=== PATIENT | male | born 1940 | race Two or more races ===

== ENCOUNTER → 2017-10-12 | Outpatient (CLI) | payer OTHER ==
[~2017-10-12] MED LIST: ASA81 MG; METFORMIN
== END | disposition home or self-care (01) ==
LOC: LAB 08:52
DX: E11.65 Type 2 diabetes mellitus with hyperglycemia (principal); N39.0 Urinary tract infection, site not specified; E78.2 Mixed hyperlipidemia

== ENCOUNTER → 2018-01-05 08:55 | Outpatient (CLI) | payer OTHER | END | disposition home or self-care (01) | LOC: LAB 08:55 | DX: Z12.11 Encounter for screening for malignant neoplasm of colon (principal); E11.65 Type 2 diabetes mellitus with hyperglycemia; D64.89 Other specified anemias; D68.8 Other specified coagulation defects; E78.2 Mixed hyperlipidemia; N40.0 Benign prostatic hyperplasia without lower urinary tract symptoms ==

== ENCOUNTER → 2018-04-05 | Outpatient (CLI) | payer OTHER | END | disposition home or self-care (01) | LOC: LAB 07:31 | DX: E11.65 Type 2 diabetes mellitus with hyperglycemia (principal); E11.21 Type 2 diabetes mellitus with diabetic nephropathy; N39.0 Urinary tract infection, site not specified; E78.2 Mixed hyperlipidemia; E03.8 Other specified hypothyroidism ==

== ENCOUNTER 2018-08-01 08:57 | Outpatient (CLI) | payer OTHER | END 2018-08-01 09:20 | disposition home or self-care (01) | LOC: LAB 08:57 | DX: J45.998 Other asthma (principal); D64.89 Other specified anemias; D68.8 Other specified coagulation defects; E11.65 Type 2 diabetes mellitus with hyperglycemia; E78.2 Mixed hyperlipidemia; E11.21 Type 2 diabetes mellitus with diabetic nephropathy; E03.8 Other specified hypothyroidism ==

== ENCOUNTER 2018-10-31 08:44 | Outpatient (CLI) | payer OTHER | END 2018-10-31 09:02 | disposition home or self-care (01) | LOC: LAB 08:44 | DX: N39.0 Urinary tract infection, site not specified (principal); E11.21 Type 2 diabetes mellitus with diabetic nephropathy; E78.2 Mixed hyperlipidemia; D64.89 Other specified anemias ==

== ENCOUNTER 2019-01-26 06:43 | Emergency (ER) | payer OTHER ==
[~2019-01-26] VITALS: Ht 165.1 cm; Wt 86.2 kg
[2019-01-26] MEDS ORDERED: ISOSORBIDE MONO60 MG (07:12)
[2019-01-26] MEDS ORDERED: ENALAPRIL MALE2.5 MG (07:12)
[2019-01-26] MEDS ORDERED: ZOCOR20 MG (07:12)
[2019-01-26] MEDS ORDERED: TOPROL XL50 MG PO (07:12)
[2019-01-26] MEDS ORDERED: GLIMEPIRIDE4 MG (07:13)
[2019-01-26] MEDS ORDERED: TESSALON PERLE100 M1 PO (08:57)
[2019-01-26] MEDS ORDERED: PROMETH-CODEIN 65 ML PO (08:57)
[2019-01-26] MEDS ORDERED: ZITHROMAX500 MG PO (08:57)
== END 2019-01-26 10:45 | disposition home or self-care (01) ==
LOC: ER 06:43
DX: R05 Cough (principal)

== ENCOUNTER 2019-02-13 08:46 | Outpatient (CLI) | payer OTHER ==
[~2019-02-13 08:46] MED LIST changes: +ENALAPRIL MALE2.5 MG; +GLIMEPIRIDE4 MG; +ISOSORBIDE MONO60 MG; +PROMETH-CODEIN 65 ML PO; +TESSALON PERLE100 M1 PO; +TOPROL XL50 MG PO; +ZITHROMAX500 MG PO; +ZOCOR20 MG
== END 2019-02-13 08:53 | disposition home or self-care (01) ==
LOC: LAB 08:46
DX: E03.8 Other specified hypothyroidism (principal); Z12.11 Encounter for screening for malignant neoplasm of colon; N40.1 Benign prostatic hyperplasia with lower urinary tract symptoms; E11.65 Type 2 diabetes mellitus with hyperglycemia

== ENCOUNTER → 2019-05-09 09:19 | Outpatient (CLI) | payer OTHER | END | disposition home or self-care (01) | LOC: LAB 09:19 | DX: E11.65 Type 2 diabetes mellitus with hyperglycemia (principal); E78.2 Mixed hyperlipidemia; E11.21 Type 2 diabetes mellitus with diabetic nephropathy; D64.89 Other specified anemias ==

== ENCOUNTER → 2019-08-06 08:40 | Outpatient (CLI) | payer OTHER | END | disposition home or self-care (01) | LOC: LAB 08:40 | DX: N40.0 Benign prostatic hyperplasia without lower urinary tract symptoms (principal); D64.89 Other specified anemias; E11.65 Type 2 diabetes mellitus with hyperglycemia ==

== ENCOUNTER → 2019-11-09 08:48 | Outpatient (CLI) | payer OTHER | END | disposition home or self-care (01) | LOC: LAB 08:48 | DX: E11.65 Type 2 diabetes mellitus with hyperglycemia (principal); N39.0 Urinary tract infection, site not specified; D64.89 Other specified anemias; E78.2 Mixed hyperlipidemia; E11.21 Type 2 diabetes mellitus with diabetic nephropathy ==

== ENCOUNTER 2020-04-14 07:19 | Outpatient (CLI) | payer OTHER | END 2020-04-14 15:00 | disposition home or self-care (01) | LOC: LAB 07:19 | PROVIDERS: ATTEND Internal Medicine Cardiovascular Disease | DX: I11.9 Hypertensive heart disease without heart failure (principal); E78.1 Pure hyperglyceridemia; E11.9 Type 2 diabetes mellitus without complications ==

== ENCOUNTER 2020-04-29 07:23 | Outpatient (CLI) | payer OTHER | END 2020-04-29 07:29 | disposition home or self-care (01) | LOC: NUCLEAR 07:23 | PROVIDERS: ATTEND Internal Medicine Cardiovascular Disease | DX: R07.89 Other chest pain (principal); I10 Essential (primary) hypertension | CPT/HCPCS: 78452; 93017; A9500; J0153 ==

== ENCOUNTER 2020-07-01 07:49 | Outpatient (CLI) | payer OTHER | END 2020-07-01 07:59 | disposition home or self-care (01) | LOC: LAB 07:49 | PROVIDERS: ATTEND Internal Medicine Cardiovascular Disease | DX: M16.0 Bilateral primary osteoarthritis of hip (principal); E11.65 Type 2 diabetes mellitus with hyperglycemia; E11.21 Type 2 diabetes mellitus with diabetic nephropathy; D64.89 Other specified anemias; D68.8 Other specified coagulation defects; D51.0 Vitamin B12 deficiency anemia due to intrinsic factor deficiency; I11.9 Hypertensive heart disease without heart failure; E78.00 Pure hypercholesterolemia, unspecified ==

== ENCOUNTER 2020-11-03 10:06 | Outpatient (CLI) | payer OTHER | END 2020-11-03 10:13 | disposition home or self-care (01) | LOC: LAB 10:06 | PROVIDERS: ATTEND Specialist | DX: E03.8 Other specified hypothyroidism (principal); E11.65 Type 2 diabetes mellitus with hyperglycemia; E11.21 Type 2 diabetes mellitus with diabetic nephropathy; N40.1 Benign prostatic hyperplasia with lower urinary tract symptoms; N39.0 Urinary tract infection, site not specified; E78.2 Mixed hyperlipidemia; D64.89 Other specified anemias; D68.8 Other specified coagulation defects ==

== ENCOUNTER → 2021-01-15 08:30 | Outpatient (CLI) | payer OTHER | END | disposition home or self-care (01) | LOC: LAB 08:30 | PROVIDERS: ATTEND Specialist | DX: D64.89 Other specified anemias (principal); E11.65 Type 2 diabetes mellitus with hyperglycemia; E11.21 Type 2 diabetes mellitus with diabetic nephropathy; N40.1 Benign prostatic hyperplasia with lower urinary tract symptoms; D51.0 Vitamin B12 deficiency anemia due to intrinsic factor deficiency; Z12.11 Encounter for screening for malignant neoplasm of colon; I11.9 Hypertensive heart disease without heart failure; E78.1 Pure hyperglyceridemia; J45.998 Other asthma ==

== ENCOUNTER 2021-06-30 09:48 | Outpatient (CLI) | payer OTHER | END 2021-06-30 15:00 | disposition home or self-care (01) | LOC: LAB 09:48 | PROVIDERS: ATTEND Internal Medicine Cardiovascular Disease | DX: E03.8 Other specified hypothyroidism (principal); I11.9 Hypertensive heart disease without heart failure; E11.9 Type 2 diabetes mellitus without complications; E78.00 Pure hypercholesterolemia, unspecified ==

== ENCOUNTER 2021-08-03 08:22 | Outpatient (CLI) | payer OTHER | END 2021-08-03 08:31 | disposition home or self-care (01) | LOC: TOM 08:22 | PROVIDERS: ATTEND Specialist | DX: G93.89 Other specified disorders of brain (principal); I63.89 Other cerebral infarction ==

== ENCOUNTER 2021-08-21 08:45 | Outpatient (CLI) | payer OTHER | END 2021-08-21 08:46 | disposition home or self-care (01) | LOC: NUCLEAR 08:45 | PROVIDERS: ATTEND Internal Medicine Cardiovascular Disease | DX: I73.9 Peripheral vascular disease, unspecified (principal) ==

== ENCOUNTER 2021-11-09 10:12 | Outpatient (CLI) | payer OTHER | END 2021-11-09 10:13 | disposition home or self-care (01) | LOC: LAB 10:12 | PROVIDERS: ATTEND Specialist | DX: E03.9 Hypothyroidism, unspecified (principal); E11.21 Type 2 diabetes mellitus with diabetic nephropathy; N39.9 Disorder of urinary system, unspecified; N40.1 Benign prostatic hyperplasia with lower urinary tract symptoms; N40.0 Benign prostatic hyperplasia without lower urinary tract symptoms; E78.2 Mixed hyperlipidemia; E11.65 Type 2 diabetes mellitus with hyperglycemia; Z12.11 Encounter for screening for malignant neoplasm of colon; D64.9 Anemia, unspecified; J45.998 Other asthma; N25.81 Secondary hyperparathyroidism of renal origin ==

== ENCOUNTER 2022-03-03 08:36 | Outpatient (CLI) | payer OTHER | END 2022-03-03 08:37 | disposition home or self-care (01) | LOC: LAB 08:36 | PROVIDERS: ATTEND Specialist | DX: R19.5 Other fecal abnormalities (principal); D64.89 Other specified anemias; N25.81 Secondary hyperparathyroidism of renal origin; E03.8 Other specified hypothyroidism; E11.69 Type 2 diabetes mellitus with other specified complication; E11.21 Type 2 diabetes mellitus with diabetic nephropathy; N39.9 Disorder of urinary system, unspecified; Z13.220 Encounter for screening for lipoid disorders; Z12.5 Encounter for screening for malignant neoplasm of prostate; R07.89 Other chest pain ==

== ENCOUNTER 2022-06-07 09:09 | Outpatient (CLI) | payer OTHER | END 2022-06-07 09:15 | disposition home or self-care (01) | LOC: LAB 09:09 | PROVIDERS: ATTEND Specialist | DX: D64.9 Anemia, unspecified (principal); D51.0 Vitamin B12 deficiency anemia due to intrinsic factor deficiency ==

== ENCOUNTER 2022-09-04 10:06 | Emergency (ER) | payer OTHER ==
[~2022-09-04] VITALS: Ht 167.6 cm; Wt 77.1 kg
[2022-09-04] MEDS ORDERED: METFORMIN HCL500 M3 PO (10:21)
[2022-09-04] MEDS ORDERED: CAPTOPRIL25 MG PO (10:21)
[2022-09-04] MEDS ORDERED: SIMVASTATIN5 MG (10:22)
[2022-09-04] MEDS ORDERED: TOPROL XL50 M1 PO (10:22)
== END 2022-09-04 13:18 | disposition home or self-care (01) ==
LOC: ER 10:06
DX: R53.1 Weakness (principal); E11.9 Type 2 diabetes mellitus without complications; Z79.84 Long term (current) use of oral hypoglycemic drugs

== ENCOUNTER → 2022-09-13 09:18 | Outpatient (CLI) | payer OTHER ==
[~2022-09-13 09:18] MED LIST changes: +CAPTOPRIL25 MG PO; +METFORMIN HCL500 M3 PO; +SIMVASTATIN5 MG; +TOPROL XL50 M1 PO
== END | disposition home or self-care (01) ==
LOC: LAB 09:18
PROVIDERS: ATTEND Specialist
DX: D64.89 Other specified anemias (principal); E03.8 Other specified hypothyroidism; Z12.5 Encounter for screening for malignant neoplasm of prostate; N39.9 Disorder of urinary system, unspecified; E11.69 Type 2 diabetes mellitus with other specified complication; R19.5 Other fecal abnormalities; M00.80 Arthritis due to other bacteria, unspecified joint; E11.21 Type 2 diabetes mellitus with diabetic nephropathy; Z13.220 Encounter for screening for lipoid disorders; N25.81 Secondary hyperparathyroidism of renal origin

== ENCOUNTER → 2022-12-02 10:02 | Outpatient (CLI) | payer OTHER | END | disposition home or self-care (01) | LOC: LAB 10:02 | PROVIDERS: ATTEND Specialist | DX: E03.8 Other specified hypothyroidism (principal); D64.89 Other specified anemias; E11.69 Type 2 diabetes mellitus with other specified complication; N39.9 Disorder of urinary system, unspecified; E11.21 Type 2 diabetes mellitus with diabetic nephropathy; Z13.220 Encounter for screening for lipoid disorders; J45.998 Other asthma ==

== ENCOUNTER 2023-03-02 09:35 | Outpatient (CLI) | payer OTHER | END 2023-03-02 15:08 | disposition home or self-care (01) | LOC: LAB 09:35 | PROVIDERS: ATTEND Specialist | DX: E11.21 Type 2 diabetes mellitus with diabetic nephropathy (principal); N39.9 Disorder of urinary system, unspecified; D64.89 Other specified anemias; Z12.5 Encounter for screening for malignant neoplasm of prostate; E03.8 Other specified hypothyroidism; N25.81 Secondary hyperparathyroidism of renal origin ==

== ENCOUNTER 2023-07-01 07:12 | Outpatient (CLI) | payer OTHER | END 2023-07-01 07:14 | disposition home or self-care (01) | LOC: NUCLEAR 07:12 | PROVIDERS: ATTEND Internal Medicine Cardiovascular Disease | DX: I25.10 Atherosclerotic heart disease of native coronary artery without angina pectoris (principal) | CPT/HCPCS: 78452; 93017; A9500; J0153 ==

== ENCOUNTER → 2023-10-05 09:47 | Outpatient (CLI) | payer OTHER ==
[2023-10-05 10:32] LABS: HEMATOCRIT 38.8 % (39.0-48.0); HEMOGLOBIN 12.9 g/dL (13-16.00); MEAN CORPUSCULAR HEMOGLOBIN 29.2 pg (27.00-32.0); MEAN CORPUSCULAR HGB CONC 33.1 g/dl (32.0-36.0); PLATELET COUNT 175 K/uL (150-450); RED BLOOD COUNT 4.41 M/uL (4.00-6.00); RED CELL DISTRIBUTION WIDTH 13.9 % (11.5-14.5)
[2023-10-05 10:36] LABS: URINE APPEARANCE Clear; URINE BILIRRUBIN Negative (NEGATIVE); URINE BLOOD Negative; URINE COLOR Yellow; URINE GLUCOSE Negative (NEGATIVE); URINE LEUKOCYTE Negative; URINE NITRATE Negative; URINE PROTEIN Negative (NEGATIVE); URINE UROBILINOGEN 0.2 E.U./dl
[2023-10-05 10:41] LABS: URINE BACTERIA 27.7 uL (0.0-1933); URINE EPITHELIAL CELLS 2.1 uL (0.0-38.8); URINE RBC 4.8 uL (0.0-20.8)
[2023-10-05 10:44] LABS: URINE WBC 1.5 uL (0.0-23.2)
[2023-10-05 11:49] LABS: ALBUMIN 3.8 gm/dL (3.4-5.0); ALKALINE PHOSPHATASE 49 U/L (50-136); ALT/SGPT 13 U/L (12-78); ANION GAP 6 (10.0-20.0); AST/SGOT 16 U/L (15-37); BILIRUBIN TOTAL 0.55 mg/dL (0.3-1.2); BLOOD UREA NITROGEN 16 mg/dL (7-18); BUN CREA RATIO 15 (7.0-25.0); CALCIUM 9.3 mg/dL (8.5-10.1); CARBON DIOXIDE 32 mEq/L (21-32); CHLORIDE 107 mmol/L (98-107); CHOL HDL RATIO 2.1 (0-5.0); CHOLESTEROL 109 mg/dL (0-200); CREATININE SERUM 1.07 mg/dL (0.70-1.30); GLOBULINA 3.5 G/DL (2.4-3.5); GLUCOSE FASTING 140 mg/dL (65-100); HDL 53 mg/dl (40-60); LDL 45 mg/dl (0-130); OSMOLALITY SERUM 285 MOSM/KG (275-295); POTASSIUM 4.48 mEq/L (3.5-5.1); SODIUM 141 mmol/L (136-145); TOTAL PROTEIN 7.3 gm/dL (6.4-8.2); TRIGLYCERIDES 56 mg/dL (0-150); VLDL 11 (0-39)
[2023-10-05 11:50] LABS: C-REACTIVE PROTEIN < 0.29 MG/DL (0.00-0.29)
[2023-10-06 10:11] LABS: % FREE PSA 57.7 % (.); free psa 2.54 ng/mL; total psa 4.4 ng/mL (0.0-4.0)
== END | disposition home or self-care (01) ==
LOC: LAB 09:47
PROVIDERS: ATTEND Specialist
DX: N25.81 Secondary hyperparathyroidism of renal origin (principal); Z13.220 Encounter for screening for lipoid disorders; E11.21 Type 2 diabetes mellitus with diabetic nephropathy; D64.89 Other specified anemias; E11.69 Type 2 diabetes mellitus with other specified complication; Z12.5 Encounter for screening for malignant neoplasm of prostate